=== PATIENT | female | born 1980 | race Two or more races ===

== ENCOUNTER 2023-11-14 10:10 | Emergency (ER) | payer MEDICAID ==
[~2023-11-14] VITALS: Ht 157.5 cm; Wt 57.6 kg
[2023-11-14] MEDS: GABAPENTIN 300 MG CAP PO ONE (11:03)
[2023-11-14] MEDS ORDERED: GABA-1250 PO (12:39)
[2023-11-14 15:02] VITALS: BP 115/68; PULSE 80; RESP 16; TEMP 98; O2SAT 100
== END 2023-11-14 15:07 | disposition home or self-care (01) ==
LOC: ER 10:10
DX: M47.812 Spondylosis without myelopathy or radiculopathy, cervical region (principal)
CPT/HCPCS: 72040; 93005